=== PATIENT | male | born 1955 | race Caucasian/White ===

== ENCOUNTER 2017-05-20 04:17 | Emergency (ER) | payer BC ==
[~2017-05-20] VITALS: Ht 190.5 cm; Wt 108.9 kg
[~2017-05-20 04:17] MED LIST: CEPH500 PO; DOXA4; DOXY100 PO; OXYACE5T PO; RXOXYACE PO; TAMS.4ER
== END 2017-05-20 05:56 | disposition home or self-care (01) ==
LOC: ER 04:17
DX: R33.9 Retention of urine, unspecified (principal); R31.9 Hematuria, unspecified; Z79.899 Other long term (current) drug therapy; E78.00 Pure hypercholesterolemia, unspecified; Z87.891 Personal history of nicotine dependence
CPT/HCPCS: 51702; 51798; 99283

== ENCOUNTER 2023-04-07 09:10 | Day surgery (SDC) | payer MEDICARE ==
[~2023-04-07] VITALS: Ht 190.5 cm; Wt 111.2 kg
[~2023-04-07 09:10] MED LIST changes: +ALBU90OI; +EZET10; +LOSA50
[2023-04-07 11:01] VITALS: BP 110/72
== END 2023-04-07 11:00 | disposition home or self-care (01) ==
LOC: ORSCSDS 09:10
PROVIDERS: Surgery
PROC: 0DJD8ZZ Inspection of Lower Intestinal Tract, Via Natural or Artificial Opening Endoscopic (ICD-10-PCS; principal; 2023-04-07 10:30)
DX: Z12.11 Encounter for screening for malignant neoplasm of colon (principal); I10 Essential (primary) hypertension; E78.5 Hyperlipidemia, unspecified; Z87.891 Personal history of nicotine dependence; Z68.31 Body mass index [BMI] 31.0-31.9, adult; Z79.899 Other long term (current) drug therapy
CPT/HCPCS: J2704; J7120